=== PATIENT | male | born 2000 | race Asian ===

== ENCOUNTER 2025-01-19 15:40 | Emergency (ER) | payer OTHER, SELFPAY ==
[2025-01-19 15:49] VITALS: BP 128/82; PULSE 94; RESP 18; TEMP 36.8; O2SAT 97
--- NOTE | 2025-01-19 15:59 | ED_ITS ---
HPI - Wound/Laceration General Chief Complaint: Wound/Laceration Stated Complaint: PUNCTURE WOUND TO R THUMB Source: patient Mode of arrival: ambulatory Limitations: no limitations History of Present Illness HPI narrative: 24 y/o male presented for a tetanus shot after he sustained a puncture wound to the right thumb from a fish hook today at 1000. 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 Says the site stopped bleeding quickly after it was removed.Pt cleansed the site with soap and water. Denies swelling or active bleeding. Related Data Home Medications ?Medication ?Instructions ?Recorded ?Confirmed ?Last Taken ?Type No Home Medications 01/19/25 01/19/25 U nknown History Allergies Allergy/AdvReac Type Severity Reaction Status Date / Time No Known Allergies Allergy Verified 01/19/25 15:51 Review of Systems Review of Systems: CONSTITUTIONAL: Denies body aches, fever, chills, or sweats. CARDIOVASCULAR: Denies chest pain, palpitations, or edema. RESPIRATORY: Denies cough or dyspnea. SKIN: Reports a puncture wound right thumb MUSCULOSKELETAL: Denies back pain, joint pain, or myalgia. NEUROLOGIC: Denies headache PMFSH Comments At time of signature, I have reviewed and agree with nursing past medical, surgical, social and family history unless otherwise noted. Please see nursing chart for further information. There is no relevant family history pertinent to the presenting complaint Exam Narrative: GENERAL: Well-appearing ENT: Mucous membranes moist. Oropharynx without edema, erythema or lesions. CHEST: Even and unlabored HEART: Regular rate and rhythm. SKIN: Warm, dry. Right thumb puncture wound, no active drainage or swelling noted. NEURO: Alert and oriented x3. Course Course Emergency Course: Patient is aware of diagnosis, understands and agrees to treatment plan. Anticipatory guidance given. Patient agrees to follow-up as directed and is aware of reasons to seek care at the emergency department. Portions of this record may have been created with voice recognition software Level of Care: Express Care Visit Vital Signs Vital signs: Vital Signs Temperature 98.2 F 01/19/25 15:49 Pulse Rate 94 01/19/25 15:49 Respiratory Rate 18 01/19/25 15:49 Blood Pressure 128/82 01/19/25 15:49 Pulse Oximetry 97 01/19/25 15:49 Oxygen Delivery Room Air 01/19/25 15:49 Temperature 98.2 F 01/19/25 15:49 Pulse Rate 94 01/19/25 15:49 Respiratory Rate 18 01/19/25 15:49 Blood Pressure 128/82 01/19/25 15:49 Pulse Oximetry 97 01/19/25 15:49 Oxygen Delivery Room Air 01/19/25 15:49 Reviewed MDM - Wound/Laceration MDM Narrative Medical decision making narrative: Discussed physical exam findings. Updated tetanus today. Advised supportive measures and signs/symptoms to go to the ER. Pt is appropriate for outpt treatment and f/u. Differential Diagnosis Differential diagnosis: Likely laceration, abrasion, avulsion of skin and other (puncture wound) Discharge Plan Discharge Clinical Impression: Puncture wound Patient Disposition: Home Condition: Stable Instructions: Antibiotic Form, Puncture Wound (ED) Additional Instructions: Keep the area clean and dry - cleanse with warm water and mild soap and allow to fully dry. Ok to apply neosporin to the site Keep it open to air (no bandages unless the wound is draining) Tetanus updated today Watch for worsening symptoms including pain, redness, swelling, streaking, pus/drainage, fever. Go to the ER with any of these symptoms or concerns. Follow up with primary care provider in 3 days as needed. Patient Language: [place] Prescriptions: No Action No Home Medications Follow-up/Referrals: PHYSICIAN,PIGMENT MAKING SUPERVISOR [Primary Care Provider, Internal Medicine]
[2025-01-19] MEDS: TETANUS,DIPHTHERIA,AC PERTUSSIS ADULT (0.5 ML) BOOSTRIX IM (16:10)
== END 2025-01-19 16:25 | disposition home or self-care (01) ==
PROVIDERS: Emergency Provider Nurse Practitioner Family
DX: S61.031A Puncture wound without foreign body of right thumb without damage to nail, initial encounter (principal); W26.8XXA Contact with other sharp object(s), not elsewhere classified, initial encounter; Z23 Encounter for immunization
CPT/HCPCS: 90471; 90715; 99202; G0463